=== PATIENT | male | born 1965 | race Caucasian/White ===

== ENCOUNTER 2016-12-03 21:42 | Emergency (ER) | payer MEDICAID ==
[~2016-12-03] VITALS: Ht 175.3 cm; Wt 76.4 kg
--- NOTE | 2016-12-03 22:11 | NUR ---
[employer] IMPLANTED PACE/DEFIB. PT STATED DEFIB PART IS SHUT OFF. ALSO HAS SCRIPT FOR ATENOLOL 25 MG NOT FILLED FROM 02/23/16
[2016-12-03] MEDS ORDERED: DILTIAZEM 25 MG/5 ML (CARDIZEM) VIAL ONE (22:16)
[2016-12-03] MEDS ORDERED: SODIUM CHLORIDE 250 ML IV PRN (22:20)
[2016-12-03] MEDS ORDERED: ASPIRIN 81 MG CHEW (CHILDREN'S ASA) PO ONE (22:20)
[2016-12-03] MEDS ORDERED: DILTIAZEM 25 MG/5 ML (CARDIZEM) VIAL IV ONE (22:20)
[2016-12-03] MEDS ORDERED: SODIUM CHLORIDE FLUSH 3 ML SYR IV PRN (22:20)
[2016-12-03] MEDS ORDERED: SODIUM CHLORIDE FLUSH 10 ML SYR IV PRN (22:20)
[2016-12-03] MEDS ORDERED: ONDANSETRON 2 MG/ML (Z0FRAN) 2 ML VIAL IV ONE (22:20)
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
[2016-12-03 22:30] LABS: BASOPHILS % (AUTO) 1 % (0-2); EOSINOPHILS # (AUTO) 0.4 10^3uL; EOSINOPHILS % (AUTO) 3 % (0-4); LYMPHOCYTES # (AUTO) 5.1 X10^3; MEAN CORPUSCULAR HEMOGLOBIN 31.3 PG (26.0-34.0); MEAN CORPUSCULAR HGB CONC 35.2 g/dL (31.0-37.0); MEAN CORPUSCULAR VOLUME 89 FL (80-100); MEAN PLATELET VOLUME 10.4 FL (6.0-9.5); MONOCYTES # (AUTO) 0.9 X10^3; MONOCYTES % (AUTO) 9 % (3-11); NEUTROPHILS # (AUTO) 4.5 X10^3; NEUTROPHILS % (AUTO) 41 % (51-67); PLATELET COUNT 237 10^3uL (150-450); WHITE BLOOD COUNT 11.06 10^3uL (4.0-11.0)
[2016-12-03 22:36] LABS: ALBUMIN 4.4 g/dL (3.4-5.0); ALKALINE PHOSPHATASE 93 U/L (38-126); ANION GAP 20.8 MEQ/L (3-15); BUN/CREATININE RATIO 17 (10-20); CALCULATED IONIZED CALCIUM 4.1 mg/dL (3.8-4.6); CREATINE KINASE 61 U/L (55-170); TOTAL PROTEIN 7.8 g/dL (6.4-8.5)
[2016-12-03 23:28] LABS: BILIRUBIN,URINE Negative (Negative); CLARITY,URINE Clear; COLOR,URINE Yellow; GLUCOSE, URINE (UA) Negative (Negative); LEUKOCYTE ESTERASE ,URINE Negative (Negative); PH,URINE 5.5 (5.0 - 8.0); UROBILINOGEN,URINE 0.2 mg/dL (0.2-1.0)
[2016-12-03 23:37] LABS: RBC,URINE 0-2 /HPF; URINE CENTRIFUGED VOLUME 12 mL
[2016-12-03 23:38] LABS: AMPHETAMINE SCREEN, URINE Negative (Negative); METHAMPHETAMINE SCREEN URINE S NEGATIVE (NEGATIVE)
[2016-12-03 23:39] LABS: CANNABINOID SCREEN, URINE Positive (Negative); OPIATE SCREEN URINE Negative (Negative); PROPOXYPHENE STAT NEGATIVE (NEGATIVE)
[2016-12-03 23:45] VITALS: BP 104/60
== END 2016-12-04 00:23 | disposition short-term general hospital (02) ==
LOC: ED 21:47 → UNDOADMIN 23:39 → ICU 23:39 → ED 12-04 00:23
DX: I48.0 Paroxysmal atrial fibrillation (principal); R07.9 Chest pain, unspecified
CPT/HCPCS: 36415; 71010; 80053; 81003; 81015; 82550; 82553; 84484; 85025; 85610; 85730; 93005; 96361; 96374; 96375; 99285; A9270; G0478; J2405; J7030; J7050; 80307; 93010; 99291

== ENCOUNTER → 2016-12-04 | Outpatient (CLI) | payer MEDICAID | LOC: EMS 12-04 00:15 | DX: I47.1 Supraventricular tachycardia (principal); I48.91 Unspecified atrial fibrillation; Z95.0 Presence of cardiac pacemaker ==